=== PATIENT | male | born 1950 | race Caucasian/White ===

== ENCOUNTER 2024-12-20 08:28 | Outpatient (CLI) | payer MEDICARE, SELFPAY | END 2024-12-20 08:29 | disposition home or self-care (01) | LOC: NFLDREF 12-24 15:49 | PROVIDERS: Visit Provider Family Medicine | DX: Z00.00 Encounter for general adult medical examination without abnormal findings (principal); I25.10 Atherosclerotic heart disease of native coronary artery without angina pectoris; I10 Essential (primary) hypertension; E78.5 Hyperlipidemia, unspecified | CPT/HCPCS: 80053; 80061 ==

== ENCOUNTER 2024-12-31 13:25 | Outpatient (CLI) | payer MEDICARE, SELFPAY ==
[2024-12-31] MEDS: PERFLUTREN LIPID MICROSPHERES 2 ML VIAL IVP (15:43)
[2024-12-31 15:44] VITALS: BP 144/84; PULSE 69; RESP 18
--- NOTE | 2024-12-31 15:57 | W.PM.STED ---
Stress Test Note Date Date Seen: 12/31/24 Date of test: 12/31/24 Providers Primary care provider: Aleksey Crain Stress test physician: Lamar Davey Stress Test Note Stress test ordered: Stress Echo Indication for test: Dyspnea, CAD Stress test medicine: Ayan Results discussion: Resting EKG: Sinus bradycardia, 56 beats per minute. Resting blood pressure: 110/68 Stress test: Patient is consented on ordered stress test an exercise treadmill stress echo. He agrees to proceed, standard Ruperto protocol is followed. Patient was noted on pre stress imaging to have some aortic dilation, the geotechnical field technician did talk to Cardiology and they recommended not having his blood pressure go over systolic of 190 during the stress test. This was observed. Patient exercise to 6 minutes 56 seconds. He started to develop some chest tightness limiting his ability to continue on the treadmill. This was equivalent with 8.3 Mets. He achieved a maximum heart rate of 117 beats per minute which was 92% of his calculated target heart rate of 126. He had a maximal blood pressure of 152/80 during exercise. His rate pressure product was 17,784. Patient develop significant PVC burden and at times bigeminy as exercise went on. This resolved within 30 seconds of recovery. Patient met no diagnostic criteria for ischemia on his EKG. His chest pressure/tightness resolved in recovery, he was asymptomatic at time of discharge. Impression: Subjectively positive test with chest tightness/pressure, EKG objectively showing PVCs and bigeminy with exercise, no diagnostic ischemic criteria but mildly suboptimal maximum heart rate. Follow up suggested: Await echo images to couple this for a full formal diagnostic. I do believe that his primary has ordered Cardiology consultation as well. Patient is discharged in stable condition.
== END 2024-12-31 15:50 | disposition home or self-care (01) ==
LOC: STRESS 13:26
PROVIDERS: PCP Family Medicine; Visit Provider Family Medicine
DX: R06.09 Other forms of dyspnea (principal)
CPT/HCPCS: 93016; 93325; 93351; Q9957